=== PATIENT | female | born 1985 ===

== ENCOUNTER 2018-01-10 10:56 | Emergency (ER) | payer OTHER ==
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
[2018-01-10] MEDS ORDERED: Silver Sulfadiazine 1%* 20 GM TOPICAL ONE ×2 (11:33→11:37)
[2018-01-10] MEDS ORDERED: Tetan/Diph/Pertus SYR(Tdap)* 0.5 ML SYR(BOOSTRIX) use SYR IM ONE (11:33)
[2018-01-10] MEDS ORDERED: Silver Sulfadiazine 1%* 20 GM ONE (11:35)
== END 2018-01-10 11:49 | disposition home or self-care (01) ==
LOC: UCEAST 10:56
DX: T24.002A Burn of unspecified degree of unspecified site of left lower limb, except ankle and foot, initial encounter (principal); X12.XXXA Contact with other hot fluids, initial encounter; Y92.9 Unspecified place or not applicable
CPT/HCPCS: 90715; 99202; A9270-GY; G0463